=== PATIENT | male | born 1975 | race Caucasian/White ===

== ENCOUNTER 2023-11-23 20:30 | Inpatient (IN) | payer MEDICAID ==
[~2023-11-23] VITALS: Ht 175.3 cm; Wt 113.4 kg
[2023-11-23 20:35] VITALS: BP_SYST 180; PULSE 90; RESP 19; TEMP 97.9; O2SAT 99
[2023-11-23] MEDS: HYDROcodone/ACETAMIN 5-325 MG TAB (NORCO/ VICODIN) PO ONE (21:05)
[2023-11-23] MEDS: KETOROLAC TROMETHAMINE 30 MG VIAL IM ONE (21:06)
[2023-11-23] MEDS: HYDROmorphone 1 MG/ML INJ. CARTRIDGE IVP ONE (23:15)
[2023-11-23] MEDS: DEXAMETHASONE SOD PHOSPHATE 10 MG/ML VIAL IVP ONE (23:18)
[2023-11-23 23:20] LABS: BASOPHILS # (AUTO) 0.1 K/uL (0.0-0.2); BASOPHILS % (AUTO) 0.8 % (0.0-2.0); EOSINOPHILS # (AUTO) 0.1 K/uL (0.0-0.4); EOSINOPHILS % (AUTO) 0.9 % (0.0-4.0); HEMATOCRIT 41.1 % (36-54); HEMOGLOBIN 14.4 g/dL (14.0-18.0); LYMPHOCYTES # (AUTO) 1.4 K/uL (1.0-5.5); LYMPHOCYTES % (AUTO) 17.8 % (20.5-51.5); MEAN CORPUSCULAR HEMOGLOBIN 31 pg (27-31); MEAN CORPUSCULAR HGB CONC 35 % (32-36); MEAN CORPUSCULAR VOLUME 89 fL (79.0-98.0); MONOCYTES # (AUTO) 0.7 K/uL (0.0-1.0); NEUTROPHILS # (AUTO) 5.6 K/uL (1.8-7.7); NEUTROPHILS % (AUTO) 71.5 % (40.0-70.0); PLATELET COUNT (AUTO) 318 K/uL (130-430); RED BLOOD CELL COUNT(AUTO) 4.63 MIL/uL (4.2-6.2); WHITE BLOOD COUNT (AUTO) 7.8 K/uL (4.8-10.8)
[2023-11-23 23:29] LABS: ANION GAP 13 (5-15); CALCIUM 9.3 mg/dL (8.4-11.0); CARBON DIOXIDE 25 mmol/L (23-29); CHLORIDE 99 mmol/L (98-107); CREATININE 0.94 mg/dL (0.55-1.30); GFR AFRICAN AMERICAN 109 mL/min (>90); GLUCOSE 305 mg/dL (74-106); POTASSIUM 3.9 mmol/L (3.5-5.1); SODIUM SERUM 137 mmol/L (136-145); UREA NITROGEN, BLOOD 16 mg/dL (8-21)
[2023-11-23 23:31] LABS: ERYTHROCYTE SEDIMENTATION RATE 28 MM/HR (0-15)
[2023-11-23 23:32] LABS: GFR NON AFRICAN-AMERICAN 90 mL/min (>90)
[2023-11-23 23:33] LABS: ALANINE AMINOTRANSFERASE 49 U/L (12-78); ALBUMIN 3.8 g/dL (3.4-4.8); ASPARTATE AMINOTRANSFERASE 8 U/L (10-37); BILIRUBIN,DIRECT 0.1 mg/dL (0.0-0.3); TOTAL BILIRUBIN 0.4 mg/dL (0.0-1.0); TOTAL PROTEIN, SERUM 7.9 g/dL (6.4-8.3)
[2023-11-23 23:41] LABS: ALCOHOL, BLOOD < 3 mg/dL (<10)
[2023-11-24 01:24] LABS: BILIRUBIN,URINE NEGATIVE (NEGATIVE); BLOOD, URINE NEGATIVE (NEGATIVE); CLARITY/URINE CLEAR (CLEAR); COLOR,URINE YELLOW (YELLOW); GLUCOSE,URINE 3+ (NEGATIVE); KETONES,URINE NEGATIVE (NEGATIVE); LEUKOCYTE ESTERASE ,URINE NEGATIVE (NEGATIVE); NITRITE, URINE NEGATIVE (NEGATIVE); PROTEIN URINE NEGATIVE (NEGATIVE); UROBILINOGEN,URINE 0.2 (0.2-1.0)
[2023-11-24] MEDS ORDERED: ACETAMINOPHEN 325 MG TABLET PO PRN (01:30)
[2023-11-24 01:59] LABS: BARBITURATE, URINE NEGATIVE (NEG <=200); CANNABINOID, URINE POSITIVE (NEG <=50); METHAMPHETAMINES SCREEN,URINE POSITIVE (NEG <=500); OPIATE, URINE POSITIVE (NEG <=100); URINE AMPHETAMINE POSITIVE (NEG <=500); URINE METHADONE NEGATIVE (NEG <=200)
[2023-11-24 02:00] LABS: BENZODIAZEPINE, URINE NEGATIVE (NEG <=150); COCAINE, URINE NEGATIVE (NEG <=150); PHENCYCLIDINE SCREEN,URINE NEGATIVE (NEG <=25); UR TRICYCLIC ANTIDEPRESSANTS NEGATIVE (NEG <=300); URINE OXYCODONE SCREEN NEGATIVE (NEG <=100)
[2023-11-24 02:10] LABS: BACTERIA,URINE None Seen /HPF (None Seen); RBC,URINE 0-3 /HPF (0-3); WBC,URINE 0-3 /HPF (0-3)
[2023-11-24] MEDS: MORPHINE 2 MG/ML INJ. SYRINGE IVP PRN (02:41)
[2023-11-24] MEDS ORDERED: cloNIDine HCL 0.1 MG TABLET PO PRN (08:30)
[2023-11-24 10:00] VITALS: O2SAT 99
[2023-11-24] MEDS ORDERED: ONDANSETRON HCL 4 MG/2 ML VIAL IVP PRN (11:00)
[2023-11-24] MEDS ORDERED: LORazepam 2 MG/ML VIAL IVP PRN (11:00)
[2023-11-24] MEDS: LIDOCAINE PATCH 5% 1 EA TP ONE (12:48)
[2023-11-24 13:30] VITALS: O2SAT 96
[2023-11-24] MEDS: NORMAL SALINE 5 ML DISP.SYRIN IVF SCH (14:00)
[2023-11-24 16:00] VITALS: BP_SYST 144; PULSE 84; RESP 18; TEMP 98.2; O2SAT 99
[2023-11-24] MEDS: predniSONE 10 MG TABLET PO ONE (16:17)
[2023-11-24] MEDS: HYDROcodone/ACETAMIN 10-325 MG TAB PO PRN (16:17)
[2023-11-24] MEDS ORDERED: iohexoL 350 mgI/mL, 100 ML INFUS..BTL IV ONE (17:43)
[2023-11-24] MEDS: INSULIN REGULAR, HUMAN 100 UNITS/ML, 3 ML VIAL (humuLIN R) SUBCUT PRN (17:44)
[2023-11-24 21:45] VITALS: BP_SYST 149; PULSE 96; RESP 19; TEMP 98.2; O2SAT 98
[2023-11-25] MEDS: HYDROcodone/ACETAMIN 5-325 MG TAB (NORCO/ VICODIN) PO PRN (01:13)
[2023-11-25 01:28] VITALS: BP_SYST 132; PULSE 81; RESP 19; TEMP 97.8; O2SAT 97
[2023-11-25 06:15] LABS: BASOPHILS # (AUTO) 0.1 K/uL (0.0-0.2); BASOPHILS % (AUTO) 0.8 % (0.0-2.0); EOSINOPHILS # (AUTO) 0.1 K/uL (0.0-0.4); EOSINOPHILS % (AUTO) 0.8 % (0.0-4.0); HEMATOCRIT 42.9 % (36-54); HEMOGLOBIN 14.9 g/dL (14.0-18.0); LYMPHOCYTES # (AUTO) 1.8 K/uL (1.0-5.5); LYMPHOCYTES % (AUTO) 24.4 % (20.5-51.5); MEAN CORPUSCULAR HEMOGLOBIN 32 pg (27-31); MEAN CORPUSCULAR HGB CONC 35 % (32-36); MEAN CORPUSCULAR VOLUME 91 fL (79.0-98.0); MONOCYTES # (AUTO) 0.7 K/uL (0.0-1.0); NEUTROPHILS # (AUTO) 4.7 K/uL (1.8-7.7); PLATELET COUNT (AUTO) 353 K/uL (130-430); RED BLOOD CELL COUNT(AUTO) 4.73 MIL/uL (4.2-6.2); RED CELL DISTRIBUTION WIDTH 13.2 % (9.0-15.0); WHITE BLOOD COUNT (AUTO) 7.4 K/uL (4.8-10.8)
[2023-11-25 06:49] LABS: CALCIUM 8.5 mg/dL (8.4-11.0); CREATININE 0.84 mg/dL (0.55-1.30)
[2023-11-25] MEDS ORDERED: MORPHINE 4 MG INJ. 4 MG/ML VIAL IVP ONE (07:15)
[2023-11-25 07:19] VITALS: BP_SYST 150; PULSE 71; RESP 19; O2SAT 98
[2023-11-25] MEDS: MORPHINE 4 MG INJ. 4 MG/ML VIAL IVP ONE (07:21)
[2023-11-25 08:00] VITALS: BP_SYST 152; PULSE 81; RESP 16; TEMP 97.7; O2SAT 99
[2023-11-25] MEDS: LIDOCAINE PATCH 5% 1 EA TP SCH (09:12)
[2023-11-25] MEDS: predniSONE 10 MG TABLET PO SCH (09:12)
[2023-11-25] MEDS: PIOGLITAZONE HCL 15 MG TABLET PO ONE (11:50)
[2023-11-25] MEDS: metFORMIN HCL 500 MG TABLET PO ONE (11:51)
[2023-11-25] MEDS: HYDROCHLOROTHIAZIDE 25 MG TABLET (HCTZ) PO ONE (11:53)
[2023-11-25 12:00] VITALS: BP_SYST 147; PULSE 69; RESP 16; TEMP 97.1; O2SAT 100
[2023-11-25 16:00] VITALS: BP_SYST 116; PULSE 98; RESP 16; TEMP 97.6; O2SAT 99
[2023-11-25] MEDS: metFORMIN HCL 500 MG TABLET PO SCH (18:20)
[2023-11-25 20:00] VITALS: BP_SYST 146; PULSE 81; RESP 18; TEMP 97.5; O2SAT 98
[2023-11-25] MEDS: OXYCODONE/ACETAMINOPHEN *10*mg/325 mg TABLET PO PRN (20:38)
[2023-11-25] MEDS: LISINOPRIL 10 MG TABLET (PRINIVIL) PO SCH (20:39)
[2023-11-26] VITALS (9 sets, daily range): BP systolic 112–138; PULSE 67–95; RESP 17–19; TEMP 97.6–98; O2SAT 98–100
[2023-11-26 05:57] LABS: BASOPHILS # (AUTO) 0.1 K/uL (0.0-0.2); BASOPHILS % (AUTO) 0.8 % (0.0-2.0); EOSINOPHILS # (AUTO) 0.1 K/uL (0.0-0.4); EOSINOPHILS % (AUTO) 1.2 % (0.0-4.0); HEMATOCRIT 44.9 % (36-54); HEMOGLOBIN 15.7 g/dL (14.0-18.0); LYMPHOCYTES # (AUTO) 1.8 K/uL (1.0-5.5); LYMPHOCYTES % (AUTO) 24.6 % (20.5-51.5); MEAN CORPUSCULAR HEMOGLOBIN 32 pg (27-31); MEAN CORPUSCULAR HGB CONC 35 % (32-36); MEAN CORPUSCULAR VOLUME 91 fL (79.0-98.0); MONOCYTES # (AUTO) 0.6 K/uL (0.0-1.0); MONOCYTES % (AUTO) 8.8 % (1.7-9.3); NEUTROPHILS # (AUTO) 4.7 K/uL (1.8-7.7); NEUTROPHILS % (AUTO) 64.6 % (40.0-70.0); PLATELET COUNT (AUTO) 379 K/uL (130-430); RED BLOOD CELL COUNT(AUTO) 4.92 MIL/uL (4.2-6.2); RED CELL DISTRIBUTION WIDTH 12.8 % (9.0-15.0); WHITE BLOOD COUNT (AUTO) 7.3 K/uL (4.8-10.8)
[2023-11-26 06:36] LABS: ALANINE AMINOTRANSFERASE 34 U/L (12-78); ALBUMIN 3.4 g/dL (3.4-4.8); ANION GAP 10 (5-15); ASPARTATE AMINOTRANSFERASE < 5 U/L (10-37); CALCIUM 8.8 mg/dL (8.4-11.0); CARBON DIOXIDE 29 mmol/L (23-29); CHLORIDE 98 mmol/L (98-107); CREATININE 0.93 mg/dL (0.55-1.30); GFR AFRICAN AMERICAN 111 mL/min (>90); GFR NON AFRICAN-AMERICAN 91 mL/min (>90); GLUCOSE 232 mg/dL (74-106); POTASSIUM 4.2 mmol/L (3.5-5.1); SODIUM SERUM 137 mmol/L (136-145); TOTAL BILIRUBIN 0.4 mg/dL (0.0-1.0); TOTAL PROTEIN, SERUM 8.1 g/dL (6.4-8.3); UREA NITROGEN, BLOOD 22 mg/dL (8-21)
[2023-11-26] MEDS: PIOGLITAZONE HCL 15 MG TABLET PO SCH (09:12)
[2023-11-26] MEDS: HYDROCHLOROTHIAZIDE 25 MG TABLET (HCTZ) PO SCH (09:12)
[2023-11-26] MEDS: predniSONE 10 MG TABLET PO SCH (09:13)
[2023-11-27] VITALS (7 sets, daily range): BP systolic 110–130; PULSE 69–96; RESP 16–20; TEMP 97.6–98.8; O2SAT 95–98
[2023-11-27 04:48] LABS: BASOPHILS # (AUTO) 0.1 K/uL (0.0-0.2); BASOPHILS % (AUTO) 0.8 % (0.0-2.0); EOSINOPHILS # (AUTO) 0.1 K/uL (0.0-0.4); HEMOGLOBIN 15.8 g/dL (14.0-18.0); LYMPHOCYTES # (AUTO) 1.8 K/uL (1.0-5.5); LYMPHOCYTES % (AUTO) 22.8 % (20.5-51.5); MEAN CORPUSCULAR HEMOGLOBIN 31 pg (27-31); MEAN CORPUSCULAR HGB CONC 34 % (32-36); MEAN CORPUSCULAR VOLUME 91 fL (79.0-98.0); MONOCYTES # (AUTO) 0.8 K/uL (0.0-1.0); MONOCYTES % (AUTO) 10.7 % (1.7-9.3); NEUTROPHILS # (AUTO) 5.1 K/uL (1.8-7.7); NEUTROPHILS % (AUTO) 64.7 % (40.0-70.0); PLATELET COUNT (AUTO) 407 K/uL (130-430); RED BLOOD CELL COUNT(AUTO) 5.04 MIL/uL (4.2-6.2); WHITE BLOOD COUNT (AUTO) 7.9 K/uL (4.8-10.8)
[2023-11-27 04:51] LABS: CREATININE 1.06 mg/dL (0.55-1.30); POTASSIUM 4.4 mmol/L (3.5-5.1)
[2023-11-28 01:05] VITALS: BP_SYST 123; PULSE 67; RESP 16; TEMP 97.6; O2SAT 98
[2023-11-28 05:01] VITALS: BP_SYST 136; PULSE 70; RESP 16; TEMP 98; O2SAT 99
[2023-11-28 06:01] LABS: BASOPHILS # (AUTO) 0.1 K/uL (0.0-0.2); BASOPHILS % (AUTO) 0.8 % (0.0-2.0); EOSINOPHILS # (AUTO) 0.1 K/uL (0.0-0.4); EOSINOPHILS % (AUTO) 1.5 % (0.0-4.0); HEMATOCRIT 43.6 % (36-54); HEMOGLOBIN 15.5 g/dL (14.0-18.0); LYMPHOCYTES # (AUTO) 1.7 K/uL (1.0-5.5); LYMPHOCYTES % (AUTO) 22.7 % (20.5-51.5); MEAN CORPUSCULAR HEMOGLOBIN 32 pg (27-31); MEAN CORPUSCULAR HGB CONC 36 % (32-36); MEAN CORPUSCULAR VOLUME 90 fL (79.0-98.0); MONOCYTES # (AUTO) 0.9 K/uL (0.0-1.0); MONOCYTES % (AUTO) 12.1 % (1.7-9.3); NEUTROPHILS # (AUTO) 4.6 K/uL (1.8-7.7); NEUTROPHILS % (AUTO) 62.9 % (40.0-70.0); PLATELET COUNT (AUTO) 402 K/uL (130-430); RED BLOOD CELL COUNT(AUTO) 4.84 MIL/uL (4.2-6.2); RED CELL DISTRIBUTION WIDTH 12.6 % (9.0-15.0); WHITE BLOOD COUNT (AUTO) 7.4 K/uL (4.8-10.8)
[2023-11-28 06:28] LABS: ALBUMIN 3.3 g/dL (3.4-4.8); CALCIUM 8.8 mg/dL (8.4-11.0); CREATININE 1.13 mg/dL (0.55-1.30); POTASSIUM 4.4 mmol/L (3.5-5.1); TOTAL BILIRUBIN 0.4 mg/dL (0.0-1.0); TOTAL PROTEIN, SERUM 7.7 g/dL (6.4-8.3)
[2023-11-28 08:33] VITALS: BP_SYST 114; BP_SYST 135; PULSE 67; PULSE 88; RESP 12; RESP 16; TEMP 98.4; O2SAT 97; O2SAT 98
[2023-11-28] MEDS ORDERED: PERC10 PO ×2 (09:56→10:00)
[2023-11-28] MEDS ORDERED: PIOG15TA8 PO (09:56)
[2023-11-28] MEDS ORDERED: METH-776 PO (09:56)
[2023-11-28] MEDS ORDERED: HCT25 PO (09:56)
[2023-11-28] MEDS ORDERED: METF-379 PO (09:56)
[2023-11-28] MEDS ORDERED: HYDR-3927 PO ×2 (09:56→10:00)
[2023-11-28] MEDS ORDERED: LISI10TA29 PO (09:56)
[2023-11-28 12:28] VITALS: BP_SYST 102; PULSE 94; RESP 16; TEMP 98.7; O2SAT 96
== END 2023-11-28 15:27 | disposition home or self-care (01) | DRG 347 ==
LOC: SED 20:30 → SMU 11-24 01:23
PROVIDERS: ADMIT Preventive Medicine Preventive Medicine/Occupational Environmental Medicine; ATTEND Preventive Medicine Preventive Medicine/Occupational Environmental Medicine
DX: M48.061 Spinal stenosis, lumbar region without neurogenic claudication (principal); M80.08XA Age-related osteoporosis with current pathological fracture, vertebra(e), initial encounter for fracture; E11.65 Type 2 diabetes mellitus with hyperglycemia; F12.90 Cannabis use, unspecified, uncomplicated; F15.90 Other stimulant use, unspecified, uncomplicated; Z79.899 Other long term (current) drug therapy
CPT/HCPCS: 36415; 72131; 72170-TC; 72193; 73502; 80048; 80053; 80076; 80307; 81000; 81001; 81015; 82948; 83037; 85025; 85651; 96372; 96374; 96375; 97110-GP; 97116-GP; 97530-GP; 99285; G0482; J1100; J1170; J1815; J1885; J2270; J7512; Q9967

== ENCOUNTER 2023-12-12 23:32 | Emergency (ER) | payer MEDICAID ==
[~2023-12-12] VITALS: Ht 172.7 cm; Wt 86.2 kg
[~2023-12-12 23:32] MED LIST: HCT25 PO; HYDR-3927 PO; LISI10TA29 PO; METF-379 PO; METH-776 PO; PERC10 PO; PIOG15TA8 PO
[2023-12-12 23:50] VITALS: BP_SYST 127; PULSE 119; RESP 20; TEMP 98.3; O2SAT 97
[2023-12-12] MEDS ORDERED: HYDR25TA4 PO (23:59)
[2023-12-12] MEDS ORDERED: LISI10TA29 PO (23:59)
[2023-12-12] MEDS ORDERED: NAPR-1172 PO (23:59)
[2023-12-12] MEDS ORDERED: METF-379 PO (23:59)
[2023-12-12] MEDS ORDERED: PIOG30TA70 PO (23:59)
[2023-12-13] MEDS: KETOROLAC TROMETHAMINE 60 MG/2 ML VIAL IM ONE (00:17)
[2023-12-13 00:24] VITALS: BP_SYST 122; PULSE 98; RESP 20; TEMP 98.3; O2SAT 99
== END 2023-12-13 00:25 | disposition home or self-care (01) ==
LOC: SED 23:32
DX: G89.29 Other chronic pain (principal); M54.50 Low back pain, unspecified; E11.9 Type 2 diabetes mellitus without complications; I10 Essential (primary) hypertension
CPT/HCPCS: 99283; 96372; J1885